=== PATIENT | female | born 1945 | race Caucasian/White ===

== ENCOUNTER 2019-07-01 08:53 | Inpatient (IN) ==
--- NOTE | 2019-06-11 14:42 | PAT Medication Instructions ---
Medication Instructions Date of Service June 11, 2019 Home Medications acetaminophen [Tylenol Arthritis Pain] 650 mg PO Q12H PRN rivaroxaban [Xarelto] 20 mg PO QAM sertraline [Zoloft] 50 mg PO QPM ASK your prescriber and surgeon rivaroxaban [Xarelto] 20 mg PO QAM (in order for spinal anesthesia, rivaroxaban/Xarelto needs to be held 72 hours prior to surgery. Please check if okay with doctor that prescribes this to you) Take morning of surgery With a small sip of water, OTHERWISE NOTHING TO EAT OR DRINK AFTER MIDNIGHT: acetaminophen [Tylenol Arthritis Pain] 650 mg PO Q12H PRN (okay to take up to 4 hours prior to surgery if needed) Take evening before surgery acetaminophen [Tylenol Arthritis Pain] 650 mg PO Q12H PRN (if needed) sertraline [Zoloft] 50 mg PO QPM Other Notes If you have any questions please call us at [phone] or [phone] or [phone] or [phone]
--- NOTE | 2019-06-13 10:58 | Anesthesiology Consultation ---
Date of Service June 13, 2019 Assessment & Plan (1) Encounter for pre-operative examination: - Xarelto instructions: patient made aware that in order for spinal anesthesia, Xarelto needs to be held 72 hours prior to surgery. Patient voiced understan ding/will check if okay with prescriber. Chart Review Chart Review: Pending: Refer to Additional Notes / Consult section (most recent cardiology office visit note (Dr. Snyder)) and Patient seen in Pre Admission Testing Teaching & Discussion Pre-Anesthesia Teaching/Discussion Notes: Instructed NPO after midnight before surgery,except medications with 15 cc of water. Medication instructions provided according to the PAT guidelines. History Surgery Operation Date: 07/01/19 11:55 Proposed Procedures p Total Knee Arthroplasty - Jermaine Velasquez DO Height/Weight Height: 5 ft 5 in Weight: 92.8 kg Allergies Allergy/AdvReac Type Severity Reaction Status Date / Time No Known Allergies Allergy Verified 06/07/19 09:47 Medications Home Medications Medication Instructions Recorded Confirmed Last Taken acetaminophen [Tylenol Arthritis 650 mg PO Q12H PRN 06/07/19 06/07/19 Unknown Pain] rivaroxaban [Xarelto] 20 mg PO QAM 06/07/19 06/07/19 Unknown sertraline [Zoloft] 50 mg PO QPM 06/07/19 06/07/19 Unknown Past Medical History Medical History Acid reflux controlled Anxiety Atrial fibrillation on Xarelto Blind Left eye Cataract Right eye Hearing deficit BL BARCLAY Hyperlipidemia Obesity Osteoarthritis Polymyalgia Sleep apnea per patient, she states that with retest she was told she did not meet criteria for needing a device Exercise / Class Metabolic Activity II 4-5 Yardwork/Stairs/Walk up hill Past Family History Family History Father Family history of diabetes mellitus Past Surgical History Surgical History History of cardiac cath 7+ years ago - no stents History of cardiac radiofrequency ablation History of cholecystectomy History of colonoscopy History of eye surgery at age 1 - Lt eye History of hammer toe correction x2 History of tonsillectomy Status post laser ablation of incompetent vein B/L LE Past Anesthesia History Other Patient: "slow to wake" Sister: "slow to wake" and bradycardia History of PONV No Hx of PONV and No Hx of Motion Sickness Social History Smoking Status: Never smoker Do You Dip or Chew Tobacco: No Hx Alcohol Use: Yes Alcohol type: beer, wine and hard liquor alcohol intake frequency: a few times a month Hx Substance Use: No substance use type: does not use Review of Systems Reflux controlled. Patient denies chest pain, shortness of breath, cough, wheezing, palpitations. Physical Exam Vital Signs VITALS BP 114/71 P 67 TEMP 97.7 SP02 97%RA RESP 18 PHYSICAL Full neck and c-spine range of motion. Full TMJ range of motion. TMD 3 finger breaths Mallampati Score 3 Dentition: missing sides/molars Lungs: clear throughout to auscultation Cardiac: regular rate and rhythm, no murmurs noted Spine: normal Carotid arteries: negative bruit Extremities: no edema Testing Laboratory Results 06/13/19 11:33 06/13/19 11:33 PT 10.2 Seconds (9.0-12.0) 06/13/19 11:33 INR 1.0 (0.9-1.1) 06/13/19 11:33 APTT 25.9 Seconds (21.0-31.0) 06/13/19 11:33 Blood Type A Positive 06/13/19 11:33 Antibody Screen NEGATIVE 06/13/19 11:33 Chest X-Ray Date: 06/13/19 Findings: + NAD
--- NOTE | 2019-06-13 12:29 | XRay Report ---
XR chest Pre-admission PA/Lat CLINICAL HISTORY: Preoperative evaluation. COMPARISON STUDY: No previous studies for comparison. FINDINGS: Lung volumes are normal. Lungs are clear. There is no pneumothorax or pleural effusion. Car diac size is normal. Mediastinal contours are normal. There is no evidence for pulmonary edema. Incid ental note is made of cholecystectomy clips. IMPRESSION: No acute cardiopulmonary findings. Electronically signed by: Burt Bland M.D. 06/13/2019 12:27 PM
[2019-06-13 12:35] LABS: Basophils # (auto) 0.04 K/uL (0-0.2); Basophils % (auto) 0.5 %; Eosinophils # (auto) 0.07 K/uL (0-0.5); Eosinophils % (auto) 0.9 %; Hematocrit (blood only) 40.1 % (37-47); Hemoglobin 13.5 g/dL (12.0-16.0); Immature Granulocytes # (auto) 0.01 K/uL (0.00-0.02); Immature Granulocytes % (auto) 0.1 %; Lymphocytes # (auto) 3.13 K/uL (1.2-3.4); Lymphocytes % (auto) 39.6 %; Mean Corpuscular Hemoglobin 30.8 pg (25-34); Mean Corpuscular Hgb Conc 33.7 g/dL (32-36); Mean Corpuscular Volume 91.3 fL (80-100); Mean Platelet Volume 10.2 fL (7.4-10.4); Monocytes # (auto) 0.52 K/uL (0.11-0.59); Monocytes % (auto) 6.6 %; Neutrophils # (auto) 4.13 K/uL (1.4-6.5); Neutrophils % (auto) 52.3 %; Platelet Count 314 K/uL (130-400); RDW Coefficient of Variation 14.1 % (11.5-14.5); RDW Standard Deviation 47.2 fL (36.4-46.3); Red Blood Count 4.39 M/uL (4.2-5.4)
[2019-06-13 12:50] LABS: Partial Thromboplastin Time 25.9 Seconds (21.0-31.0); Prothrombin Time 10.2 Seconds (9.0-12.0)
[2019-06-13 13:05] LABS: BUN Creatinine Ratio 24.9 (10-20); Creatinine Clr Calc Pharmacy 69.3 ml/min; Est GFR (African American) 84.9; Est GFR (Non-African American) 73.2
--- NOTE | 2019-07-01 06:20 | History & Physical Report ---
Date of Service July 01, 2019 Assessment & Plan (1) Osteoarthritis of right knee: We will proceed with a right total knee arthroplasty. Postoperatively she will be placed back on her Xarelto for DVT prophylaxis. She will be kept overnight in the hospital for postop medical management. She plans to use [employer] upon discharge. Present on Admission?: Yes History of Present Illness Chief Complaint: Primary osteoarthritis of the right knee Primary Care Provider: Yarely Bartlett is a pleasant 73-year-old female who is been complaining of chronic increasing bilateral knee pain. The right is worse than the left. X-rays and clinical examination have been diagnostic for primary osteoarthritis of the right knee. After failing conservative treatment, she has elected to proceed with a right total knee arthroplasty. Allergies Allergy/AdvReac Type Severity Reaction Status Date / Time No Known Allergies Allergy Verified 06/07/19 09:47 Home Medications Home Medications Medication Instructions Recorded Confirmed Type acetaminophen [Tylenol Arthritis 650 mg PO Q12H PRN 06/07/19 06/07/19 History Pain] rivaroxaban [Xarelto] 20 mg PO QAM 06/07/19 06/07/19 History sertraline [Zoloft] 50 mg PO QPM 06/07/19 06/07/19 History Past Med/Surg History Medical History Acid reflux controlled Anxiety Atrial fibrillation on Xarelto Blind Left eye Cataract Right eye Hearing deficit BL BARCLAY Hyperlipidemia Obesity Osteoarthritis Polymyalgia Sleep apnea per patient, she states that with retest she was told she did not meet criteria for needing a device Surgical History History of cardiac cath 7+ years ago - no stents History of cardiac radiofrequency ablation History of cholecystectomy History of colonoscopy History of eye surgery at age 1 - Lt eye History of hammer toe correction x2 History of tonsillectomy Status post laser ablation of incompetent vein B/L LE Family History Father Family history of diabetes mellitus Social History Preferred Language: Malawian Communication Ability: Effective Vmware Administrator Required: No Beliefs That Will Affect Care: None Current Living Situation: Significant Other Other Information That Helps Us Care for You: No Feels Safe at Home: Yes Safety Concerns: Feels Safe At This Time Smoking Status: Never smoker Do You Dip or Chew Tobacco: No ; Second Hand Exposure: Yes (previous exposure) ; Hx Alcohol Use: Yes Alcohol type: beer, wine and hard liquor Hx Substance Use: No Review of Systems All systems reviewed & are unremarkable except as noted in HPI & below Physical Exam Constitutional: WD/WN, vitals as above Eyes: PERRL, conjunctivae normal, anicteric sclerae ENMT: external ear and nose normal, oropharynx normal Neck: trachea midline, no thyromegaly Respiratory: normal respiratory effort Cardiovascular: RRR, no murmur, no edema Gastrointestinal (Abdomen): normal bowel sounds, soft, nontender, no hepatosplenomegaly Musculoskeletal: On physical examination of the right knee there is a trace effusion. There is near full range of motion and no evidence of instability. There is significant tenderness palpation along the medial and lateral joint lines and over the distal femoral condyles. Psychiatric: A+Ox3, euthymic affect Results & Data Diagnostic Findings Radiographs of the right knee demonstrate advanced osteoarthritis with joint space narrowing osteophyte formation and [id number] articulation.
[~2019-07-01 08:53] MED LIST: ACETAMINOPHEN 500 MG TAB PO SCH; BUPIVACAINE 0.5 % 5 MG/1 ML PF 10ML VIAL ONE; CEFAZOLIN 2000MG 2,000 MG/15 ML SYR IV SCH; FAMOTIDINE 20 MG TAB PO SCH; GABAPENTIN 300 MG CAP PO SCH; LR 500ML BOLUS, THEN 15ML/HR IV SCH; LR 60ML/HR IV SCH; ROPIVACAINE 0.5% 5 MG/ML 30 ML VIAL ONE; ROPIVACAINE 0.5% HCL/PF 150 MG, BUPIVACAINE 0.5% MPF 30 ML, EPINEPHrine 30MG/30ML (OR U... INFIL SCH; TRANEXAMIC ACID 1,000 MG **IV Intra-op IV SCH; TRANEXAMIC ACID 1,000 MG **IV Pre-op IV SCH
[2019-07-01] MEDS ORDERED: PHENYLEPHRINE 100MCG/ML 5ML SYR ONE (11:26)
[2019-07-01] MEDS ORDERED: PROPOFOL IV EMULSION 10 MG/ML 20 ML VIAL IV ONE (11:26)
[2019-07-01] MEDS ORDERED: ePHEDrine sulfate 50 MG/ML SYR ONE (11:26)
[2019-07-01] MEDS ORDERED: MIDAZOLAM HCL 1 MG/ML 2ML VIAL ONE (11:26)
[2019-07-01] MEDS ORDERED: ORTHO JOINT ANESTHETIC ONE (11:27)
[2019-07-01] MEDS ORDERED: KETOROLAC 30 MG/ML VIAL IV PRN (12:05)
[2019-07-01] MEDS ORDERED: ONDANSETRON INJ 2 MG/ML 2 ML VIAL IV PRN ×2 (12:05→15:23)
[2019-07-01] MEDS ORDERED: HYDROmorphone INJ 1 MG/ML SYRINGE IV PRN (12:05)
[2019-07-01] MEDS ORDERED: ATROPINE SULFATE 0.1 MG/ML 10ML SYR IV PRN (12:05)
[2019-07-01] MEDS ORDERED: ePHEDrine sulfate 50 MG/ML AMP IV PRN (12:05)
[2019-07-01] MEDS ORDERED: PHENYLEPHRINE 100MCG/ML 5ML SYR IV PRN (12:05)
--- NOTE | 2019-07-01 13:50 | Operative Report ---
Post Operative Report Pre & Post Diagnosis Operation Date: 07/01/19 12:10 Pre-Op Diagnosis: Right Knee Degenerative Joint Disease Post-Op Diagnosis: Right Knee Degenerative Joint Disease Procedure Operation Date: 07/01/19 12:10 Actual Procedures p Right Total Knee Arthroplasty(Right) - Jermaine Velasquez DO Surgeon Jermaine Velasquez DO Pre Press Proofer Jermaine Moy PAC Estimated Blood Loss 100 Findings Consistent with Post-Op Diagnosis Specimens Right femoral and tibial bone Complications none Disposition Disposition: Recovery Room Indications Tri is a pleasant 73-year-old female who presented my office with complaints of chronic increasing right knee pain. X-rays and clinical examination were diagnostic for primary osteoarthritis of the right knee. After failing conservative treatment, she elected proceed with a right total knee arthroplasty. Description of Procedure Implants used: I used a [employer] Vanguard total knee arthroplasty system with a size 65 femur, 71 tibia, 31 patella, and a size 12 PS polyethylene bearing. All components were cemented in place with Palacos G cement. The patient arrived [facility] for the above procedure. There were seen in the preoperative holding area and the operative extremity was identified and signed. There were given a preoperative antibiotic, a spinal anesthetic and an adductor nerve block. There were taken back to the operating room and laid on the table in supine position. There were given basic sedation. The operative knee was then prepped and draped in sterile fashion. A timeout was done, and the patient and the operative extremity was properly identified. A midline incision was made directly over the patella. Dissection was taken down to the extensor mechanism. A subvastus arthrotomy was used. The medial retinaculum was released and the fat pad was mostly left intact. The knee was flexed and the ACL, PCL, and meniscus were removed. A drill was sent down the center of the femoral canal followed by an intramedullary brandy. Off that brandy a distal femoral cutting block was placed. 9 mm was resected off the distal femur at 5 of valgus. A posterior referencing AP sizing guide was then placed on the distal femur. The femur measured to be a size 65. 2 drill holes were placed in 3 of external rotation. A 4-in-1 cutting block was then impacted into place. Anterior posterior and chamfer cuts were then made. The posterior stabilizing box guide was then impacted into place and the box was resected for the posterior stabilizing component. The proximal tibia was then exposed. A drill was sent down the center of the tibial canal followed by an intramedullary brandy. Off that brandy a proximal tibial resection guide was placed. The proximal tibia was then resected. The tibia measured to be a size 71. The tibial plate was then placed in the appropriate rotation and the tibia was punched. The posterior aspect of the knee was then opened up and any additional meniscus fragments and osteophytes were removed. Trial components were then placed. I used a size 12 PS polyethylene insert. The knee was brought through a full range of motion and felt to be stable. The patella was then everted and 8 mm was resected off the posterior aspect of the patella. The patella measured to be a size 31. 3 peg holes were then drilled. A trial patella was placed. The knee was once again brought through a full ran ge of motion and felt to be stable. Trial components were then removed. The surrounding soft tissues were injected with 100 cc of an orthopedic pain control cocktail. All components were then cemented into place with Palacos G cement. The final polyethylene insert was then snapped into place and the anterior bar was locked. Once cement was dry the tourniquet was deflated. Hemostasis was obtained. A dilute betadyne lavage was then done for 3 minutes. The joint was then irrigated with normal saline solution. The subvastus arthrotomy was then closed with #1 Vicryl suture. The skin was closed with 2-0 Vicryl, 3-0V lock suture, and ignacio. A soft compressive dressing was placed. The patient was then transferred to a hospital bed and taken to the postanesthesia care unit in stable condition. They tolerated the procedure well. I attest to the content of the Intraoperative Record and any orders documented therein. Any exceptions are noted below.
--- NOTE | 2019-07-01 14:30 | XRay Report ---
XR knee RT 2V routine HISTORY: 73 years-old Female Surgical Post Op right knee total joint arthroplasty COMPARISON: Knee radiographs 04/18/2019 TECHNIQUE: 2 views of the right knee FINDINGS: Right knee total joint arthroplasty and patella resurfacing demonstrate satisfactory alignment. Anter ior midline skin ignacio are noted along with expected postsurgical soft tissue swelling and deep tis reza air with surgical drainage catheter. No acute fracture or retained foreign body. IMPRESSION: Satisfactory alignment of the right knee total joint arthroplasty. The above report was generated using voice recognition software. It may contain grammatical, syntax o r spelling errors. Electronically signed by: Aman Scruggs M.D. 07/01/2019 2:28 PM
--- NOTE | 2019-07-01 14:37 | Anesthesiology Progress Note ---
Date of Service July 01, 2019 Anesthesia Post Procedure Vital Signs Vital Signs: Temp Pulse Pulse Resp BP Pulse Ox 07/01/19 14:35 63 16 112/64 95 07/01/19 14:25 63 16 109/63 100 07/01/19 14:15 63 16 109/64 100 07/01/19 14:09 36.8 C 73 16 114/65 98 07/01/19 09:48 37.0 C 70 18 103/61 96 Pain Intensity Left Knee: Pain Intensity: 8 Transfer of Care Handoff Completed per policy Notes Mental Status: alert / awake / arousable Patient Amnestic to Procedure: Yes Nausea / Vomiting: adequately controlled Pain: adequately controlled Airway Patency, RR, SpO2: stable & adequate BP & HR: stable & adequate Hydration State: stable & adequate Neuraxial Anesthesia: was administered and sensory block is resolving Anesthetic Complications: no major complications apparent
[2019-07-01] MEDS ORDERED: OXYCODONE HCL IR 5 MG TAB (IMMEDIATE RELEASE) PO PRN (15:23)
[2019-07-01] MEDS ORDERED: METOCLOPRAMIDE HCL INJ 5 MG/ML 2 ML VIAL IV PRN (15:23)
[2019-07-01] MEDS ORDERED: MAGNESIUM HYDROXIDE SUSP 30 ML UDC PO PRN (15:23)
[2019-07-01] MEDS ORDERED: HYDROmorphone INJ 0.5 MG/0.5 ML SYR IV PRN (15:23)
[2019-07-01] MEDS ORDERED: bisacodyL 10 MG SUPP PR PRN (15:23)
[2019-07-01] MEDS ORDERED: NALOXONE HCL 0.4 MG/1 ML VIAL/CARP IV PRN (15:23)
[2019-07-01] MEDS ORDERED: ACETAMINOPHEN 325 MG TAB PO PRN (15:28)
[2019-07-01] MEDS: SODIUM CHLORIDE 0.9% 1000ML 1,000 ML IV SCH (16:25)
[2019-07-01] MEDS ORDERED: INFLUENZA ADMINISTRATION CHARGE ONE (16:30)
[2019-07-01] MEDS ORDERED: INFLUENZA VIRUS QUAD VACCINE 0.5 ML SYR IM ONE (16:30)
[2019-07-01] MEDS: KETOROLAC TROMETHAMINE 15 MG/ML VIAL IV SCH ×2 (16:52→21:47)
[2019-07-01] MEDS: DOCUSATE SODIUM 100 MG CAP PO SCH (20:27)
[2019-07-01] MEDS: CEFAZOLIN 2000MG 2,000 MG/15 ML SYR IV SCH (20:27)
[2019-07-01] MEDS: SERTRALINE HCL 50 MG TABLET PO SCH (20:28)
[2019-07-01] MEDS: SENNA 8.6 MG TAB PO SCH (20:28)
[2019-07-01] MEDS: ASPIRIN 81 MG ECTAB PO SCH (20:29)
[2019-07-02] MEDS: SODIUM CHLORIDE 0.9% 1000ML 1,000 ML IV SCH (01:36)
[2019-07-02] MEDS: KETOROLAC TROMETHAMINE 15 MG/ML VIAL IV SCH ×4 (04:46→21:10)
[2019-07-02] MEDS: CEFAZOLIN 2000MG 2,000 MG/15 ML SYR IV SCH (04:47)
[2019-07-02 06:06] LABS: Mean Corpuscular Hemoglobin 30.4 pg (25-34); Mean Corpuscular Hgb Conc 33.3 g/dL (32-36); Mean Corpuscular Volume 91.1 fL (80-100); Platelet Count 248 K/uL (130-400); RDW Coefficient of Variation 13.8 % (11.5-14.5); Red Blood Count 3.95 M/uL (4.2-5.4); White Blood Count 12.91 K/uL (4.8-10.8)
[2019-07-02 06:39] LABS: BUN Creatinine Ratio 16.3 (10-20); Calcium 8.5 mg/dl (8.5-10.1); Creatinine Clr Calc Pharmacy 54.1 ml/min; Est GFR (African American) 63.1; Est GFR (Non-African American) 54.4; Potassium 3.9 mmol/L (3.5-5.1)
[2019-07-02] MEDS: ASPIRIN 81 MG ECTAB PO SCH ×2 (07:46→21:07)
[2019-07-02] MEDS: MULTIVITAMIN TAB PO SCH (07:46)
[2019-07-02] MEDS: DOCUSATE SODIUM 100 MG CAP PO SCH ×2 (07:46→21:08)
--- NOTE | 2019-07-02 08:55 | Orthopedic Progress Note ---
Date of Service July 02, 2019 Assessment & Plan (1) Osteoarthritis of right knee: Overall she is doing very well. She is not having much pain in the right knee. She will be seen by physical therapy today for ambulation and range of motion exercises. She is on aspirin for DVT prophylaxis. She was on Xarelto 20 mg daily. Unfortunately this often causes wound complications. She is on the Xarelto for atrial fibrillation for which she had an ablation of and she is no longer in A. fib. She has not been in A. fib for a long time. We talked about the risks and benefits of being on Xarelto for heart as well as the risks of being on Xarelto for wound complications after knee replacement surgery. After discussions with her she feels more comfortable staying on aspirin twice a day for 2 weeks and then resuming her Xarelto. And weighing the risks and benefits I think were safe proceeding with aspirin for 2 weeks. She can be discharged to home later today on aspirin for 2 weeks. [facility]. Present on Admission?: Yes Richard Bartlett was seen and examined at bedside this morning. Overall she is doing very well. She is not having much pain in the right knee. She is going to be seen by physical therapy today. She was able to get some sleep last night. She has no complaints. Physical Exam Musculoskeletal: On physical examination of the right knee, the dressing is clean and dry. She is sitting in a chair with her knee flexed about 100 degrees. She is neurovascular intact and has no complaints. Results & Data Vital Signs (Past 12 Hours) Vital Signs Temp Pulse Resp BP Pulse Ox 07/02/19 07:11 36.7 C 71 16 114/72 96 07/02/19 03:01 36.8 C 71 16 119/71 97 07/01/19 23:14 36.8 C 73 16 103/64 95 Laboratory Results H & H 06/13/19 07/02/19 Range/Units 11:33 05:26 Hgb 13.5 12.0 (12.0-16.0) g/dL Hct 40.1 36.0 L (37-47) % Coagulation 06/13/19 Range/Units 11:33 INR 1.0 (0.9-1.1) Diagnostic Findings Postoperative x-rays of the right knee show the prosthesis to be in anatomic alignment without any evidence of fracture, dislocation, or loosening. PG Care Time/CCT Total # of Minutes Spent Total Time Spent with Patient: Total time spent is greater than 50% in coordination of care (as documented) at patient's floor/unit and/or counseling patient:
--- NOTE | 2019-07-02 08:57 | Discharge Summary ---
Date of Service July 02, 2019 Admission HPI Per Admitting Provider Tri is a pleasant 73-year-old female who is been complaining of chronic increasing bilateral knee pain. The right is worse than the left. X-rays and clinical examination have been diagnostic for primary osteoarthritis of the right knee. After failing conservative treatment, she has elected to proceed with a right total knee arthroplasty. Principal Diagnosis Right total knee arthroplasty Discharge Data Allergies Allergy/AdvReac Type Severity Reaction Status Date / Time No Known Allergies Allergy Verified 07/01/19 09:46 Consultations 07/01/19 15:23 Consult Case Management - Discharge Planning Routine Procedures Performed Operation Date: 07/01/19 12:10 Actual Procedures p Right Total Knee Arthroplasty(Right) - Jermaine Velasquez DO Ordered Studies 07/01/19 05:00 US - OR guided needle placemen Routine Hospital Course (1) Osteoarthritis of right knee: On July 01, 2019 Tri arrived at [facility] and underwent a right total knee arthroplasty without complication. She had a spinal anesthetic and a right adductor nerve block. Postoperatively she was started on aspirin for DVT prophylaxis and discharged to general orthopedic floors. Her hospital course was uneventful. On postop day #1 her H&H was stable and her pain was well controlled. She was able to ambulate well with physical therapy. She was then discharged home with [facility]. She will follow-up with orthopedics in 2 weeks. Total Time Total Time Spent Total Time Spent (In Minutes): 20 Discharge Plan Discharge Items Patient Disposition: Home - Home Health Services Reason For Visit: Right Knee Degenerative Joint Disease Discharge Diagnosis: Right total knee arthroplasty Activity: As commented below Non-emergency contact: Surgeon Call non-emergency contact if: your wound has increased redness and your wound has increased drainage Follow-up/Referrals: Yarely Sanders M.D. [Primary Care Provider] - Diet: Regular Addtl Attending Provider Instructions: Activity and Therapy Recommendations: * If you are using [facility] then therapy will be provided at your home until they feel you have accomplished all of your goals. * If you are using [facility] then Physical Therapy will be provided until they feel you are ready to start Outpatient Physical Therapy. * If you are not using home therapy then Outpatient Physical Therapy should start about 3-5 days from your day of surgery. Therapy will last about 6-10 weeks * It is important not to put a pillow under your knee when you are relaxing or sleeping. It is just as important to make sure you are getting your knee perfectly straight as it is to regain your knee bend. * You were shown a series of exercises in the hospital. Do these exercises three times each day including the exercises you were shown in physical therapy. * Get up and walk several times each day. For the first four weeks, try not to stand or walk for more than one hour at a time. If you do stand or walk for more than one hour, you will not hurt anything, but your leg will likely swell. * As you feel comfortable, you may change from the walker or crutches to a cane and then to independent walking. Medications: * Narcotic You will likely be sent home from the hospital with a prescription for the narcotic pain medication that worked best throughout your stay. * Aspirin Most patients will be required to take Aspirin 81mg twice a day for 6 weeks after surgery. This is obtained [id number] and a prescription is not necessary. * Other medications may be prescribed for specific circumstances. If you have any questions, please call the office at . * Resume previous home medications unless otherwise instructed TEDs/Elastic Stockings: The white elastic stockings help limit swelling and prevent blood clots from f orming in your legs.~ The more you wear them, the more they work. Wear them for six weeks. Dressing Care: If the incision is not draining then you may leave the ignacio open to air. If there is a little bit of drainage or if the ignacio are getting stuck on your clothing then cover the incision with a dry dressing. The ignacio will be removed at your 2 week follow-up appointment. Showering: You may shower 5 days from the day of surgery. Let the soapy shower water run over the ignacio and pat them dry. Do not scrub or soak the incision. Things To Watch For: * Drainage from the incision site that occurs more than one week after your surgery. * Increased redness at the incision site. * Fever above 102 degrees Fahrenheit. * Unusual chest pain or shortness of breath. * Call [facility] at with any of the above problems Follow-Up Visit: Follow-up with Dr. Velasquez 2-3 weeks after your day of surgery. An appointment was probably scheduled when you signed-up for surgery in the office. If you have any questions call Office Instructions: More detailed instructions as well as Frequently Asked Questions were provided in a folder by our office when you signed-up for surgery. Please review these instructions when you get home. If you have any further questions or concerns, please feel free to call the office at [phone] Pending Studies at Discharge: No Stand-Alone Forms: My [facility] Medications and DC Order Prescriptions: New aspirin [Ecotrin Low Strength] 81 mg Tablet,Delayed Release (Dr/Ec) 81 mg PO BID Qty: 84 RF: 0 hydrocodone-acetaminophen 5-325 mg tablet 1 tab PO Q6H PRN (Reason: pain) Qty: 30 RF: 0 Continued acetaminophen [Tylenol Arthritis Pain] 650 mg Tablet Extended Release 650 mg PO Q12H PRN (Reason: Pain) RF: 0 sertraline [Zoloft] 50 mg Tablet 50 mg PO QPM RF: 0 Discontinued Xarelto 20 mg Tablet 20 mg PO QAM RF: 0 Discharge Orders: Discharge Order (Routine); Ordered 07/02/19 Ordered By: Jermaine Velasquez Admission Data Admit Date/Time: 07/01/19 13:54 Attending Provider: Jermaine Velasquez Admit Provider: Jermaine Velasquez Primary Care Provider: Yarely Sanders
--- NOTE | 2019-07-02 14:13 | Anesthesiology Progress Note ---
Date of Service July 02, 2019 Anesthesia Post Procedure Vital Signs Vital Signs: Temp Pulse Pulse Resp BP Pulse Ox 07/02/19 11:45 36.8 C 67 16 111/68 98 07/02/19 09:49 36.8 C 74 22 120/75 97 07/02/19 07:11 36.7 C 71 16 114/72 96 07/02/19 03:01 36.8 C 71 16 119/71 97 07/01/19 23:14 36.8 C 73 16 103/64 95 07/01/19 19:58 36.7 C 72 17 111/70 95 07/01/19 18:15 36.7 C 71 16 102/63 96 07/01/19 17:19 36.5 C 59 L 17 114/71 98 07/01/19 16:21 36.5 C 60 17 98/60 L 96 07/01/19 15:51 36.4 C L 58 L 16 101/64 96 07/01/19 15:00 66 19 104/60 94 07/01/19 14:45 63 15 113/61 94 07/01/19 14:35 36.7 C 63 16 112/64 95 07/01/19 14:25 63 16 109/63 100 07/01/19 14:15 63 16 109/64 100 Pain Intensity Left Knee: Pain Intensity: 1 Notes Mental Status: alert / awake / arousable Nausea / Vomiting: adequately controlled Pain: adequately controlled Airway Patency, RR, SpO2: stable & adequate BP & HR: stable & adequate Hydration State: stable & adequate Neuraxial Anesthesia: was administered and sensory block resolved Anesthetic Complications: no major complications apparent and Pt Satisfied with anesthetic care
[2019-07-02] MEDS: SENNA 8.6 MG TAB PO SCH (21:09)
[2019-07-02] MEDS: SERTRALINE HCL 50 MG TABLET PO SCH (21:09)
[2019-07-03] MEDS: KETOROLAC TROMETHAMINE 15 MG/ML VIAL IV SCH ×2 (03:33→10:02)
--- NOTE | 2019-07-03 06:58 | Orthopedic Progress Note ---
Date of Service July 03, 2019 Assessment & Plan (1) Osteoarthritis of right knee: Overall she is doing very well. She will be seen by physical therapy today to do stairs and further range of motion exercises. She is on oxycodone for pain control at the hospital and wants to be discharged on hydrocodone. We are doing aspirin for DVT prophylaxis instead of Xarelto and this was explained in earlier note. [facility] discharge today. She will follow-up with orthopedics in 2 weeks. Present on Admission?: Yes Richard Bartlett was seen and examined at bedside this morning. Overall she is feeling much better today. She has more strength in her right leg. She was scheduled for discharge yesterday but the therapist did not feel she was able to do stairs quite yet. She was still having some weakness in her leg from the block. We decided to keep her an extra day. She is glad she stayed the extra day. She is feeling much better today and ready to go home. Physical Exam Musculoskeletal: On physical examination of the right knee, the dressing has been changed and the incision is clean and dry. Her legs out in full extension. She is neurovascular intact. Results & Data Vital Signs (Past 12 Hours) Vital Signs Temp Pulse Resp BP Pulse Ox 07/02/19 23:31 36.9 C 74 14 115/63 95 PG Care Time/CCT Total # of Minutes Spent Total Time Spent with Patient: Total time spent is greater than 50% in coordination of care (as documented) at patient's floor/unit and/or counseling patient:
[2019-07-03] MEDS: MULTIVITAMIN TAB PO SCH (08:23)
[2019-07-03] MEDS: ASPIRIN 81 MG ECTAB PO SCH (08:23)
[2019-07-03] MEDS: DOCUSATE SODIUM 100 MG CAP PO SCH (08:23)
== END 2019-07-03 12:07 | disposition home health service (06) | DRG 470 ==
LOC: ASU 08:53 → 3E 13:54

== ENCOUNTER 2019-11-11 09:39 | Observation (INO) ==
--- NOTE | 2019-10-16 20:41 | PAT Medication Instructions ---
Medication Instructions Date of Service October 16, 2019 Home Medications acetaminophen [Tylenol Arthritis Pain] 650 mg PO Q12H PRN sertraline [Zoloft] 50 mg PO QPM tolterodine 4 mg capsule,extended release 24 hr 4 mg PO HS mqcewro-dlkigxipv-ygke 1 tab PO DAILY cranberry 4,200 mg PO DAILY lactobacillus combination no.4 [Probiotic] 3,000 mmu cells PO DAILY rivaroxaban [Xarelto] 20 mg PO HS ASK your prescriber and surgeon rivaroxaban [Xarelto] 20 mg PO HS *MUST BE HELD FOR A MINIMUM OF 3 DAYS/72 HOURS BEFORE SURGERY FOR SPINAL ANESTHESIA (preferred method) DO NOT take the morning of surgery yusaefw-ajqcooihc-cpor 1 tab PO DAILY cranberry 4,200 mg PO DAILY lactobacillus combination no.4 [Probiotic] 3,000 mmu cells PO DAILY Take evening before surgery acetaminophen [Tylenol Arthritis Pain] 650 mg PO Q12H PRN (if needed) sertraline [Zoloft] 50 mg PO QPM tolterodine 4 mg capsule,extended release 24 hr 4 mg PO HS Other Notes If you have any questions please call us at [phone] or [phone] or [phone] or [phone]
--- NOTE | 2019-10-17 11:26 | Anesthesiology Consultation ---
Date of Service October 17, 2019 Assessment & Plan (1) Encounter for pre-operative examination: Chart Review Chart Review: Acceptable Risk for Surgery and Patient seen in Pre Admission Testing Teaching & Discussion Instructed NPO after midnight before surgery, except medications with 15 cc of water. Medication instructions provided according to the PAT guidelines. Pt aware Xarelto must be held for at least 72 hours prior to surgery; she will check with prescriber and surgeon. History Surgery Operation Date: 11/11/19 08:50 Proposed Procedures p Left Total Knee Arthroplasty - Jermaine Velasquez DO Height/Weight Height: 5 ft 5 in Weight: 87.2 kg Allergies Allergy/AdvReac Type Severity Reaction Status Date / Time acetaminophen [From Percocet] AdvReac Unknown Nausea Verified 10/17/19 10:12 oxycodone [From Percocet] AdvReac Unknown Nausea Verified 10/17/19 10:12 Medications Home Medications Medication Instructions Recorded Confirmed Last Taken acetaminophen [Tylenol Arthritis 650 mg PO Q12H PRN 06/07/19 10/07/19 06/28/19 Pain] sertraline [Zoloft] 50 mg PO QPM 06/07/19 10/07/19 06/28/19 tolterodine 4 mg capsule,extended 4 mg PO HS 08/24/19 10/07/19 Unknown release 24 hr yjevznb-qsxseyhep-jxrf 1 tab PO DAILY 10/07/19 10/07/19 Unknown cranberry 4,200 mg PO DAILY 10/07/19 10/07/19 Unknown lactobacillus combination no.4 3,000 mmu cells PO DAILY 10/07/19 10/07/19 Unknown [Probiotic] rivaroxaban [Xarelto] 20 mg PO HS 10/07/19 10/07/19 Unknown Past Medical History Medical History (Updated 10/17/19 @ 16:04 by Andrew Barrett) Acid reflux Anxiety Arthritis SPINE Atrial fibrillation DX 3-4 YR AGO, S/P SUCCESSFUL RFA CONTINUES XARELTO. Blind Left eye Cataract Right eye Hearing deficit BL BARCLAY Hyperlipidemia Osteoarthritis Polymyalgia Sleep disturbance Denies CURT, but states she had a sleep study in the past that was + for some sleep abnormality. Exercise / Class Metabolic Activity II 4-5 Yardwork/Stairs/Walk up hill (Denies CP or SOB with 1 FOS, does daily) Past Family History Family History Father Family history of diabetes mellitus Past Surgical History Surgical History (Updated 10/17/19 @ 16:04 by Andrew Barrett) History of cardiac cath 7+ years ago - no stents History of cardiac radiofrequency ablation History of cholecystectomy History of colonoscopy History of eye surgery at age 1 - Lt eye History of hammer toe correction x2 History of hysterectomy History of tonsillectomy History of total knee arthroplasty (~2019) RIGHT. 07/03/19 [facility]. SAB @ L3-L4+ PNB Status post laser ablation of incompetent vein B/L LE Past Anesthesia History No Hx of Anesthesia Complications and No Family Hx of Anesthesia Complications (other than son is "slow to wake") History of PONV No Hx of PONV and No Hx of Motion Sickness Social History Smoking Status: Never smoker Do You Dip or Chew Tobacco: No Hx Alcohol Use: Yes Alcohol type: beer, wine and hard liquor alcohol intake frequency: a few times a month Hx Substance Use: No substance use type: does not use Review of Systems Pt denies any recent chest pain, shortness of breath, palpitations, cough, fever or URI. +recent sinus congestion, resolved with Neti Pot use Physical Exam Vital Signs BP: 107/71 P: 67bpm SPO2: 100% RA T: 97.8 F R: 12 ENMT Mouth: no dental restorations, no chipped teeth and no loose teeth Thyromental Distance: > or= 3.5 Finger Breadths (4) Mallampati Class: II L eye ptosis. Neck normal visual inspection and + limited neck extension Respiratory normal respiratory effort Auscultation: lungs clear to auscultation bilaterally Cardiovascular Rate/Rhythm: regular rate and regular rhythm Heart Sounds: no murmur Vessels: no carotid bruit Extremities: no edema Testing Laboratory Results 10/17/19 11:13 10/17/19 11:13 PT 11.3 Seconds (9.0-12.0) 10/17/19 11:13 INR 1.1 (0.9-1.1) 10/17/19 11:13 APTT 30.8 Seconds (21.0-31.0) 10/17/19 11:13 Blood Type A Positive 10/17/19 11:13 Antibody Screen NEGATIVE 10/17/19 11:13 Electrocardiogram Date: 06/13/19 Findings: + NSR @ (62) Left axis deviation. Chest X-Ray Date: 06/13/19 Findings: + NAD
[2019-10-17 12:36] LABS: Basophils # (auto) 0.04 K/uL (0-0.2); Basophils % (auto) 0.6 %; Eosinophils # (auto) 0.09 K/uL (0-0.5); Eosinophils % (auto) 1.3 %; Hematocrit (blood only) 41.7 % (37-47); Hemoglobin 13.8 g/dL (12.0-16.0); Lymphocytes # (auto) 2.23 K/uL (1.2-3.4); Lymphocytes % (auto) 32.7 %; Mean Corpuscular Hemoglobin 28.5 pg (25-34); Mean Corpuscular Hgb Conc 33.1 g/dL (32-36); Mean Platelet Volume 10.1 fL (7.4-10.4); Monocytes # (auto) 0.52 K/uL (0.11-0.59); Monocytes % (auto) 7.6 %; Neutrophils # (auto) 3.95 K/uL (1.4-6.5); Neutrophils % (auto) 57.8 %; Platelet Count 383 K/uL (130-400); RDW Coefficient of Variation 13.9 % (11.5-14.5); RDW Standard Deviation 43.7 fL (36.4-46.3); Red Blood Count 4.85 M/uL (4.2-5.4); White Blood Count 6.83 K/uL (4.8-10.8)
[2019-10-17 12:48] LABS: INR 1.1 (0.9-1.1); Partial Thromboplastin Ratio 1.1; Partial Thromboplastin Time 30.8 Seconds (21.0-31.0); Prothrombin Time 11.3 Seconds (9.0-12.0)
[2019-10-17 13:11] LABS: BUN Creatinine Ratio 19.3 (10-20); Calcium 9.5 mg/dl (8.5-10.1); Creatinine Clr Calc Pharmacy 68.8 ml/min; Est GFR (African American) 87.5; Est GFR (Non-African American) 75.5
--- NOTE | 2019-11-11 06:39 | History & Physical Report ---
Date of Service November 11, 2019 Assessment & Plan (1) Osteoarthritis of left knee: We will proceed with a left total knee arthroplasty. Postoperatively she will be started back on Xarelto 20 mg for DVT prophylaxis. She will be kept overnight in the hospital for postoperative medical management. She plans to go to [facility] in [place] upon discharge. Present on Admission?: Yes History of Present Illness Chief Complaint: Primary osteoarthritis of the left knee Primary Care Provider: Yarely Bartlett is a pleasant 73-year-old lady who has been dealing with chronic increasing left knee pain. X-rays and clinical examination have been diagnostic for primary osteoarthritis of the left knee. I did a right knee replacement on her about 4 months ago. She did very well with that. She has elected to proceed with a left total knee arthroplasty. Allergies Allergy/AdvReac Type Severity Reaction Status Date / Time acetaminophen [From Percocet] AdvReac Unknown Nausea Verified 10/17/19 10:12 oxycodone [From Percocet] AdvReac Unknown Nausea Verified 10/17/19 10:12 Home Medications Home Medications Medication Instructions Recorded Confirmed Type acetaminophen [Tylenol Arthritis 650 mg PO Q12H PRN 06/07/19 10/07/19 History Pain] sertraline [Zoloft] 50 mg PO QPM 06/07/19 10/07/19 History tolterodine 4 mg capsule,extended 4 mg PO HS 08/24/19 10/07/19 History release 24 hr bqumzjz-xygzqpkxx-ekcp 1 tab PO DAILY 10/07/19 10/07/19 History cranberry 4,200 mg PO DAILY 10/07/19 10/07/19 History lactobacillus combination no.4 3,000 mmu cells PO DAILY 10/07/19 10/07/19 History [Probiotic] rivaroxaban [Xarelto] 20 mg PO HS 10/07/19 10/07/19 History Past Med/Surg History Medical History Acid reflux Anxiety Arthritis SPINE Atrial fibrillation DX 3-4 YR AGO, S/P SUCCESSFUL RFA CONTINUES XARELTO. Blind Left eye Cataract Right eye Hearing deficit BL [place] Hyperlipidemia Osteoarthritis Polymyalgia Sleep disturbance Denies CURT, but states she had a sleep study in the past that was + for some sleep abnormality. Surgical History History of cardiac cath 7+ years ago - no stents History of cardiac radiofrequency ablation History of cholecystectomy History of colonoscopy History of eye surgery at age 1 - Lt eye History of hammer toe correction x2 History of hysterectomy History of tonsillectomy History of total knee arthroplasty (~2019) RIGHT. 07/03/19 [facility]. SAB @ L3-L4+ PNB Status post laser ablation of incompetent vein B/L LE Family History Father Family history of diabetes mellitus Social History Preferred Language: Slovak Communication Ability: Effective Hand Glass Cutter Required: No Beliefs That Will Affect Care: None Current Living Situation: Significant Other Feels Safe at Home: Yes Smoking Status: Never smoker Second Hand Exposure: Yes (previous exposure) ; Hx Alcohol Use: Yes Alcohol type: beer, wine and hard liquor Hx Substance Use: No Review of Systems All systems reviewed & are unremarkable except as noted in HPI & below Physical Exam Constitutional: WD/WN, vitals as above Eyes: PERRL, conjunctivae normal, anicteric sclerae ENMT: external ear and nose normal, oropharynx normal Neck: trachea midline, no thyromegaly Respiratory: normal respiratory effort Cardiovascular: RRR, no murmur, no edema Gastrointestinal (Abdomen): normal bowel sounds, soft, nontender, no hepatosplenomegaly Musculoskeletal: On physical examination of the left knee there is a trace effusion. There is near full range of motion and no evidence of instability. There is significant tenderness palpation along the medial and lateral joint lines and over the distal femoral condyles. Psychiatric: A+Ox3, euthymic affect Results & Data Diagnostic Findings Radiographs of the left knee demonstrate advanced osteoarthritis with joint space narrowing osteophyte formation and eppu-uq-ycqv articulation.
[~2019-11-11 09:39] MED LIST changes: -ROPIVACAINE 0.5% HCL/PF 150 MG, BUPIVACAINE 0.5% MPF 30 ML, EPINEPHrine 30MG/30ML (OR U... INFIL SCH; +ROPIVACAINE 0.5% HCL/PF 150 MG, BUPIVACAINE 0.5% MPF 30 ML, EPINEPHrine 30MG/30ML (OR U... INSTIL SCH; +dexAMETHasone 4 MG TAB PO SCH
--- NOTE | 2019-11-11 10:36 | History & Physical Bridge Note ---
Date of Service November 11, 2019 History & Physical Bridge Note I have examined the patient, reviewed the History & Physical and in the interval since the performance of the History & Physical I have noted the following changes of clinical significance: no changes noted
[2019-11-11] MEDS ORDERED: LIDOCAINE HCL 2% 2 ML VIAL/AMP(20MG/ML) INFIL ONE (11:54)
[2019-11-11] MEDS ORDERED: ONDANSETRON INJ 2 MG/ML 2 ML VIAL ONE (11:54)
[2019-11-11] MEDS ORDERED: MIDAZOLAM HCL 1 MG/ML 2ML VIAL ONE ×2 (11:54→12:31)
[2019-11-11] MEDS ORDERED: GLYCOPYRROLATE 0.2 MG/ML VIAL ONE (11:54)
[2019-11-11] MEDS ORDERED: PROPOFOL IV EMULSION 10 MG/ML 20 ML VIAL IV ONE ×2 (11:54→12:44)
[2019-11-11] MEDS ORDERED: HYDROmorphone INJ 1 MG/ML SYRINGE IV PRN (12:30)
[2019-11-11] MEDS ORDERED: ePHEDrine sulfate 50 MG/ML AMP IV PRN (12:30)
[2019-11-11] MEDS ORDERED: ONDANSETRON INJ 2 MG/ML 2 ML VIAL IV PRN ×2 (12:30→15:57)
[2019-11-11] MEDS ORDERED: ATROPINE SULFATE 0.1 MG/ML 10ML SYR IV PRN (12:30)
[2019-11-11] MEDS ORDERED: KETOROLAC TROMETHAMINE 15 MG/ML VIAL IV PRN (12:41)
[2019-11-11] MEDS ORDERED: ORTHO JOINT ANESTHETIC ONE (13:11)
[2019-11-11] MEDS ORDERED: fentaNYL citrate 100 MCG/2 ML VIAL ONE (13:47)
--- NOTE | 2019-11-11 14:54 | Operative Report ---
PG Post Operative Report Pre & Post Diagnosis Operation Date: 11/11/19 12:30 Pre-Op Diagnosis: LEFT KNEE DEGENERATIVE JOINT DISEASE Post-Op Diagnosis: LEFT KNEE DEGENERATIVE JOINT DISEASE I identified the patient and participated in the time-out.: Yes Procedure Operation Date: 11/11/19 12:30 Actual Procedures p Left Total Knee Arthroplasty(Left) - Jermaine Velasquez DO Surgeon Jermaine Velasquez, Transportation Department Head Jermaine Moy PAC Estimated Blood Loss 20 Findings Consistent with Post-Op Diagnosis Specimens Left femoral and tibial bone Complications none Disposition Disposition: Recovery Room Indications Tri is a pleasant 73-year-old female who underwent a right total knee arthroplasty 4 months ago. She did very well with that. Unfortunately she has been dealing with a lot of pain of her left knee. X-rays and clinical examination have been diagnostic for primary osteoarthritis of the left knee. After failing conservative treatment, she elected to proceed with a left total knee arthroplasty. Description of Procedure Implants used: I used a [employer]entSpringguard total knee arthroplasty system with a size 67.5 femur, 71 tibia, 31 patella, and a size 10 PS plus polyethylene bearing. All c omponents were cemented in place with Palacos G cement. Tri arrived [facility] for the above procedure. She was seen in the preoperative holding area and the operative extremity was identified and signed. She was given a preoperative antibiotic, TXA, a spinal anesthetic and an adductor nerve block. She was taken back to the operating room and laid on the table in supine position. She was given basic sedation. The operative knee was then prepped and draped in sterile fashion. A timeout was done, and the patient and the operative extremity was properly identified. A midline incision was made directly over the patella. Dissection was taken down to the extensor mechanism. A subvastus arthrotomy was used. The medial retinaculum was released and the fat pad was mostly excised. The knee was flexed and the ACL, PCL, and meniscus were removed. A drill was sent down the center of the femoral canal followed by an intramedullary brandy. Off that brandy a distal femoral cutting block was placed. 9 mm was resected off the distal femur at 5 of valgus. A posterior referencing AP sizing guide was then placed on the distal femur. The femur measured to be a size 67.5. 2 drill holes were placed in 3 of external rotation. A 4-in-1 cutting block was then impacted into place. Anterior, posterior, and chamfer cuts were then made. The posterior stabilizing box guide was then impacted into place and the box was resected for the posterior stabilizing component. The proximal tibia was then exposed. A drill was sent down the center of the tibial canal followed by an intramedullary brandy. Off that brandy a proximal tibial resection guide was placed. The proximal tibia was then resected. The tibia measured to be a size 71. The tibial plate was then placed in the appropriate rotation and the tibia was punched. The posterior aspect of the knee was then opened up and any additional meniscus fragments and osteophytes were removed. Trial components were then placed. I used a size 10 PS plus polyethylene insert. The knee was brought through a full range of motion and felt to be stable. The patella was then everted and 8 mm was resected off the posterior aspect of the patella. The patella measured to be a size 31. 3 peg holes were then drilled. A trial patella was placed. The knee was once again brought through a full range of motion and felt to be stable. Trial components were then removed. The surrounding soft tissues were injected with 100 cc of an orthopedic pain control cocktail. All components were then cemented into place with Palacos G cement. The final polyethylene insert was then snapped into place and the anterior bar was locked. Once cement was dry the tourniquet was deflated. Hemostasis was obtained. A dilute betadyne lavage was then done for 3 minutes. The joint was then irrigated with normal saline solution. The subvastus arthrotomy was then closed with #1 Vicryl suture. The skin was closed with 2-0 Vicryl, 3-0V lock suture, and ignacio. A soft compressive dressing was placed. She was then transferred to a hospital bed and taken to the postanesthesia care unit in stable condition. She tolerated the procedure well. I attest to the content of the Intraoperative Record and any orders documented therein. Any exceptions are noted below.
--- NOTE | 2019-11-11 15:25 | Anesthesiology Progress Note ---
Date of Service November 11, 2019 Anesthesia Post Procedure Vital Signs Vital Signs: Temp Pulse Pulse Resp BP Pulse Ox 11/11/19 15:15 80 16 104/61 97 11/11/19 15:09 36.5 C 82 14 102/61 97 11/11/19 10:26 36.4 C L 69 16 130/72 98 Pain Intensity Left Knee: Pain Intensity: 2 Transfer of Care Handoff Completed per policy Notes Mental Status: alert / awake / arousable Patient Amnestic to Procedure: Yes Nausea / Vomiting: adequately controlled Pain: adequately controlled Airway Patency, RR, SpO2: stable & adequate BP & HR: stable & adequate Hydration State: stable & adequate Neuraxial Anesthesia: was administered and sensory block is resolving Anesthetic Complications: no major complications apparent and Pt Satisfied with anesthetic care
--- NOTE | 2019-11-11 15:31 | XRay Report ---
LEFT KNEE 2 VIEWS History: Left total knee arthroplasty. Degenerative arthritis. Postop. FINDINGS: The patient is status post a left total knee arthroplasty. The hardware is intact. No fract ure or dislocation. Skin ignacio are in place. IMPRESSION: Left total knee arthroplasty. No evidence for hardware complication. ACT 112: Negative or not required by law. Electronically signed by: Paresh Dahl M.D. 11/11/2019 3:30 PM
[2019-11-11] MEDS ORDERED: SODIUM CHLORIDE 0.9% 1000ML 1,000 ML IV SCH (15:57)
[2019-11-11] MEDS ORDERED: bisacodyL 10 MG SUPP PR PRN (15:57)
[2019-11-11] MEDS ORDERED: TRAMADOL HCL 50 MG TABLET PO PRN (15:57)
[2019-11-11] MEDS ORDERED: METOCLOPRAMIDE HCL INJ 5 MG/ML 2 ML VIAL IV PRN (15:57)
[2019-11-11] MEDS ORDERED: HYDROmorphone INJ 0.5 MG/0.5 ML SYR IV PRN (15:57)
[2019-11-11] MEDS ORDERED: NALOXONE HCL 0.4 MG/1 ML VIAL/CARP IV PRN (15:57)
[2019-11-11] MEDS ORDERED: MAGNESIUM HYDROXIDE SUSP 30 ML UDC PO PRN (15:57)
[2019-11-11] MEDS: KETOROLAC TROMETHAMINE 15 MG/ML VIAL IV SCH (18:23)
[2019-11-11] MEDS ORDERED: SERTRALINE HCL 50 MG TABLET PO SCH (21:00)
[2019-11-11] MEDS ORDERED: TOLTERODINE TARTRATE LA 4 MG CAPCR PO SCH (21:00)
[2019-11-11] MEDS ORDERED: RIVAROXABAN 20 MG TAB PO SCH (21:00)
[2019-11-11] MEDS ORDERED: SENNA 8.6 MG TAB PO SCH (21:00)
[2019-11-11] MEDS: CEFAZOLIN 2000MG 2,000 MG/15 ML SYR IV SCH (21:23)
[2019-11-11] MEDS: DOCUSATE SODIUM 100 MG CAP PO SCH (21:24)
[2019-11-11] MEDS: ACETAMINOPHEN 500 MG TAB PO SCH (21:25)
[2019-11-12] MEDS: KETOROLAC TROMETHAMINE 15 MG/ML VIAL IV SCH ×2 (00:42→05:26)
[2019-11-12] MEDS: CEFAZOLIN 2000MG 2,000 MG/15 ML SYR IV SCH (05:26)
[2019-11-12] MEDS: ACETAMINOPHEN 500 MG TAB PO SCH (05:26)
[2019-11-12 06:54] LABS: Hematocrit (blood only) 34.6 % (37-47); Hemoglobin 11.6 g/dL (12.0-16.0); Mean Corpuscular Hgb Conc 33.5 g/dL (32-36); Mean Corpuscular Volume 83.6 fL (80-100); Mean Platelet Volume 9.7 fL (7.4-10.4); Platelet Count 251 K/uL (130-400); RDW Coefficient of Variation 15.1 % (11.5-14.5); RDW Standard Deviation 46.4 fL (36.4-46.3); Red Blood Count 4.14 M/uL (4.2-5.4); White Blood Count 10.66 K/uL (4.8-10.8)
[2019-11-12 07:22] LABS: BUN Creatinine Ratio 22.4 (10-20); Calcium 9.1 mg/dl (8.5-10.1); Creatinine Clr Calc Pharmacy 54.3 ml/min; Est GFR (African American) 65.4; Est GFR (Non-African American) 56.4; Potassium 4.3 mmol/L (3.5-5.1)
--- NOTE | 2019-11-12 07:36 | Orthopedic Progress Note ---
Date of Service November 12, 2019 Assessment & Plan (1) History of left knee replacement: Overall she is doing very well. She not having much pain in the left knee. She can be seen by physical therapy this morning for ambulation and range of motion exercises. She is on Xarelto 20 mg daily for DVT prophylaxis. She can be discharged home later today. She will follow-up with orthopedics in 2 weeks. Present on Admission?: Yes Richard Bartlett was seen and examined at bedside this morning. Overall she is doing very well. She is not having much pain in the left knee. She is already been up and ambulating to the bathroom. She has no complaints. Physical Exam Musculoskeletal: On physical examination of the left knee, the dressing is clean and dry. She sitting at bedside with her knee flexed at about 80 degrees. She is neurovascularly intact. Results & Data ([facility]) Vital Signs (Past 12 Hours) Vital Signs Temp Pulse Resp BP Pulse Ox 11/12/19 07:19 36.5 C 80 18 131/67 99 11/12/19 03:00 36.4 C L 56 L 14 104/64 93 11/11/19 23:14 36.4 C L 65 15 105/65 96 Laboratory Results H & H 10/17/19 11/12/19 Range/Units 11:13 06:24 Hgb 13.8 11.6 L (12.0-16.0) g/dL Hct 41.7 34.6 L (37-47) % Coagulation 10/17/19 Range/Units 11:13 INR 1.1 (0.9-1.1) Diagnostic Findings Postoperative x-rays of the left knee show the prosthesis to be in anatomic alignment without any evidence of fracture, dislocation, or loosening. PG Care Time/CCT Total # of Minutes Spent Total Time Spent with Patient: Total time spent is greater than 50% in coordination of care (as documented) at patient's floor/unit and/or counseling patient: Coding Level of Care Code None Diagnoses History of left knee replacement Z96.652
--- NOTE | 2019-11-12 07:44 | Discharge Summary ---
Date of Service November 12, 2019 Admission HPI Per Admitting Provider Tri is a pleasant 73-year-old lady who has been dealing with chronic increasing left knee pain. X-rays and clinical examination have been diagnostic for primary osteoarthritis of the left knee. I did a right knee replacement on her about 4 months ago. She did very well with that. She has elected to proceed with a left total knee arthroplasty. Principal Diagnosis Left total knee arthroplasty Discharge Data Allergies Allergy/AdvReac Type Severity Reaction Status Date / Time acetaminophen [From Percocet] AdvReac Unknown Nausea Verified 11/11/19 10:18 oxycodone [From Percocet] AdvReac Unknown Nausea Verified 11/11/19 10:18 Consultations 11/11/19 15:57 Consult Case Management - Discharge Planning Routine Procedures Performed Operation Date: 11/11/19 12:30 Actual Procedures p Left Total Knee Arthroplasty(Left) - Jermaine Velasquez DO Ordered Studies 11/11/19 05:00 US - OR guided needle placemen Routine Hospital Course (1) History of left knee replacement: On November 11, 2019 Tri arrived at [facility] and underwent a left total knee arthroplasty without complication. She had a spinal anesthetic. Postoperatively she was started on Xarelto for DVT prophylaxis and discharged to general orthopedic floors. Her hospital course was uneventful. On postop day #1 her H&H was stable and her pain was well controlled. She was able to participate well with physical therapy doing ambulation and range of motion exercises. She was then discharged home. She will follow-up with orthopedics in 2 weeks. Total Time Total Time Spent Total Time Spent (In Minutes): 20 Discharge Plan Discharge Items Reason For Visit: LEFT KNEE DEGENERATIVE JOINT DISEASE Discharge Diagnosis: Left total knee arthroplasty Activity: As commented below Non-emergency contact: Surgeon Call non-emergency contact if: your wound has increased redness and your wound has increased drainage Follow-up/Referrals: Yarely Sanders M.D. [Primary Care Provider] - Diet: Regular Addtl Attending Provider Instructions: Activity and Therapy Recommendations: * If you are using [facility] then therapy will be provided at your home until they feel you have accomplished all of your goals. * If you are using [facility] then Physical Therapy will be provided until they feel you are ready to start Outpatient Physical Therapy. * If you are not using home therapy then Outpatient Physical Therapy should start about 3-5 days from your day of surgery. Therapy will last about 6-10 weeks * It is important not to put a pillow under your knee when you are relaxing or sleeping. It is just as important to make sure you are getting your knee perfectly straight as it is to regain your knee bend. * You were shown a series of exercises in the hospital. Do these exercises three times each day including the exercises you were shown in physical therapy. * Get up and walk several times each day. For the first four weeks, try not to stand or walk for more than one hour at a time. If you do stand or walk for more than one hour, you will not hurt anything, but your leg will likely swell. * As you feel comfortable, you may change from the walker or crutches to a cane and then to independent walking. Medications: * Narcotic You will likely be sent home from the hospital with a prescription for the narcotic pain medication that worked best throughout your stay. * Aspirin Most patients will be required to take Aspirin 81mg twice a day for 6 weeks after surgery. This is obtained [id number] and a prescription is not necessary. * Other medications may be prescribed for specific circumstances. If you have any questions, please call the office at . * Resume previous home medications unless otherwise instructed TEDs/Elastic Stockings: The white elastic stockings help limit swelling and prevent blood clots from forming in your legs.~ The more you wear them, the more they work. Wear them for six weeks. Dressing Care: If the incision is not draining then you may leave the ignacio open to air. If there is a little bit of drainage or if the ignacio are getting stuck on your clothing then cover the incision with a dry dressing. The ignacio will be removed at your 2 week follow-up appointment. Showering: You may shower 5 days from the day of surgery. Let the soapy shower water run over the ignacio and pat them dry. Do not scrub or soak the incision. Things To Watch For: * Drainage from the incision site that occurs more than one week after your surgery. * Increased redness at the incision site. * Fever above 102 degrees Fahrenheit. * Unusual chest pain or shortness of breath. * Call [facility] at with any of the above problems Follow-Up Visit: Follow-up with Dr. Velasquez 2-3 weeks after your day of surgery. An appointment was probably scheduled when you signed-up for surgery in the off ice. If you have any questions call Office Instructions: More detailed instructions as well as Frequently Asked Questions were provided in a folder by our office when you signed-up for surgery. Please review these instructions when you get home. If you have any further questions or concerns, please feel free to call the office at [phone] Pending Studies at Discharge: No Stand-Alone Forms: My [employer], Smoking Cessation Medications and DC Order Prescriptions: New hydrocodone-acetaminophen 5-325 mg tablet 1 tab PO Q6H PRN (Reason: pain) Qty: 30 RF: 0 Continued tolterodine 4 mg capsule,extended release 24hr 4 mg PO HS RF: 0 acetaminophen [Tylenol Arthritis Pain] 650 mg Tablet Extended Release 650 mg PO Q12H PRN (Reason: Pain) RF: 0 sertraline [Zoloft] 50 mg Tablet 50 mg PO QPM RF: 0 [id number] Tablet 1 tab PO DAILY RF: 0 cranberry 400 mg Capsule 4,200 mg PO DAILY RF: 0 Xarelto 20 mg Tablet 20 mg PO HS RF: 0 Probiotic 3 billion cell Capsule 3,000 mmu cells PO DAILY RF: 0 Krames/Other Patient Handouts: Osteoarthritis Med Admission Data Admit Date/Time: 11/11/19 15:11 Attending Provider: Jermaine Velasquez Admit Provider: Jermaine Velasquez Primary Care Provider: Yarely Sanders Coding Level of Care Code D/C Day Management <30 mins Diagnoses History of left knee replacement Z96.652
[2019-11-12] MEDS ORDERED: dexAMETHasone 4 MG TAB PO SCH (08:00)
[2019-11-12] MEDS: DOCUSATE SODIUM 100 MG CAP PO SCH (08:59)
[2019-11-12] MEDS ORDERED: MULTIVITAMIN TAB PO SCH (09:00)
== END 2019-11-12 12:33 | disposition home or self-care (01) ==
LOC: ASU 09:39 → 3E 09:39